=== PATIENT | male | born 2000 | race Caucasian/White ===

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

== ENCOUNTER 2020-03-31 23:04 | Emergency (ER) | payer OTHER, SELFPAY ==
[~2020-03-31] VITALS: Ht 170.2 cm; Wt 113.4 kg
[2020-03-31 23:05] VITALS: Ht 170.2 cm; Wt 113.4 kg
[2020-03-31 23:50] LABS: BASOPHIL % 0.4 % (0.2-1.5); PLATELET COUNT 208 x10^3mcL (152-348)
[2020-03-31 23:53] LABS: RED CELL DISTRIBUTION WIDTH 16.1 % (12.1-16.2)
[2020-04-01 00:01] LABS: CALCIUM 8.6 mg/dL (8.5-10.1); CARBON DIOXIDE 28.5 mmol/L (21-32); CHLORIDE SERUM 99 mmol/L (98-107); GFR1 > 60 mL/min; GLUCOSE SERUM 97 mg/dL (74-106); POTASSIUM SERUM 3.6 mmol/L (3.5-5.1); SODIUM SERUM 138 mmol/L (136-145)
[2020-04-01 00:05] LABS: ALBUMIN 3.8 g/dL (3.4-5.0); ALKALINE PHOSPHATASE 71 U/L (46-116); ALT/SGPT 41 U/L (16-63); AMYLASE 50 U/L (25-115); AST/SGOT 34 U/L (15-37); BILIRUBIN TOTAL 0.6 mg/dL (0.20-1.00); LIPASE 89 IU/L (73-393)
[2020-04-01 00:08] LABS: TOTAL PROTEIN, SERUM 8.3 g/dL (6.4-8.2)
[2020-04-01] MEDS ORDERED: MIRALAX17 GM PO (00:52)
[2020-04-01] MEDS ORDERED: TRAMADOL HCL50 MG PO (00:52)
[2020-04-01 01:13] VITALS: BP 134/51
== END 2020-04-01 01:13 | disposition home or self-care (01) ==
LOC: ED 23:04
PROVIDERS: Emergency Medicine
DX: R10.84 Generalized abdominal pain (principal); R11.10 Vomiting, unspecified